=== PATIENT | female | born 1955 | race Caucasian/White ===

== ENCOUNTER 2017-01-26 07:17 | Inpatient (IN) ==
[2017-01-26] MEDS ORDERED: ALBUTEROL NEB INH ONE (07:29)
[2017-01-26] MEDS ORDERED: CATAPRES PO ONE ×2 (07:36→08:00)
[2017-01-26 07:45] LABS: MANUAL DIFF NEEDED? NO
--- NOTE | 2017-01-26 07:45 | EKG Report ---
Test Performed on : 01/26/2017 07:34:45 AM Test Reason : CHEST PAIN Blood Pressure : / mmHG Vent. Rate : 095 BPM Atrial Rate : 095 BPM P-R Int : 134 ms QRS Dur : 078 ms QT Int : 370 ms P-R-T Axes : 063 070 058 degrees QTc Int : 464 ms Normal sinus rhythm. Normal ECG No previous ECGs available Unconfirmed Result
[2017-01-26 07:48] LABS: BASO% 0.2 % (0.0-0.8); EOS# 0.08 X1000 (0.0-0.7); EOS% 0.7 % (0.0-10.0); HEMOGLOBIN 14.6 g/dL (12.0-16.0); IMM GRAN# 0.03 X1000 (0.0-0.04); IMM GRAN% 0.2 % (0.0-0.5); LYMPH# 1.04 X1000 (1.2-3.4); LYMPH% 8.5 % (20.5-51.1); MCH 28.6 PG (27-31); MCHC 34.8 g/dL (33-37); MCV 82.2 FL (81-99); MONO# 0.82 X1000 (0.11-0.59); MONO% 6.7 % (1.7-9.3); MPV 10.2 FL (7.4-10.4); NEUT% 83.7 % (42.2-75.2); PLT 265 X1000 (130-400); RBC 5.11 XMIL (4.2-5.4)
--- NOTE | 2017-01-26 07:55 | PROVIDER DOCUMENTATION ---
HPI-Respiratory General - General Chief Complaint: Shortness of Breath Stated Complaint: SOB Time Seen by Provider: 01/26/17 07:47 Source: patient Allergies/Adverse Reactions: Patient Allergies Allergy/AdvReac Type Severity Reaction Status Date / Time No Known Allergies Allergy Verified 01/26/17 07:25 Home Medications: Home Medication List Medication Instructions Recorded Confirmed Last Taken Type Albuterol Sulfate [Ventolin Hfa] 01/26/17 Unknown History Azithromycin [Azithromycin] 01/26/17 Unknown History Brompheniramine/Pseudoephed/Dm 01/26/17 Unknown History [Wbzqjlkpdl-Wtnrrcbdrgo-Ol Syr] Furosemide [Furosemide] 01/26/17 Unknown History Levofloxacin [Levofloxacin] 01/26/17 Unknown History Lisinopril/Hydrochlorothiazide 01/26/17 Unknown History [Lisinopril-Hctz 10-12.5 mg Tab] - History of Present Illness-Resp Nature of Presenting Problem: sick 5 days ago worked sunday raw throat not coughing no runny nose no wheezes feels sob Quality of Pain: reports: none Severity in ED: reports: mild Onset/Duration: reports: 5 days ago Timing: reports: getting worse Context: reports: recent URI Cough Quality/Degree: reports: productive cough Episode Frequency: no prior episodes Current Respiratory Medication Therapy: Initiated none Modifying Factors: improves with: albuterol inhaler. worse with: exertion, coughing Associated Symptoms: reports: cough, hyperventilating, shortness of breath, wheezing. denies: fever/chills, flu-like symptoms, headache, nasal congestion, nasal drainage Similar Symptoms Previously?: No Recently seen or treated by another doctor?: No Review of Systems - Adult - REVIEW OF SYSTEMS - ADULT Constitutional: denies: chills, fever, night sweats Eyes: reports: no symptoms reported Ears, Nose, Mouth & Throat: reports: sinus problem, hoarseness Cardiovascular: reports: edema. denies: chest pain, PND Respiratory: reports: cough, dyspnea on exertion, excessive sputum production, shortness of breath. denies: hemoptysis Gastrointestinal: reports: no symptoms reported Genitourinary: reports: no symptoms reported Musculoskeletal: reports: no symptoms reported Integumentary: reports: no symptoms reported Neurological: reports: no symptoms reported. denies: headache/migraines Endocrine: reports: no symptoms reported Hematologic/Lymphatic: denies: blood clots, easy bruising, low blood count Allergic/Immunologic: denies: asthma, eczema, hay fever Past History - Adult - PAST MEDICAL HISTORY-ADULT Review of Records: reports: Nursing Assessment Review, Medications Reviewed, Social history reviewed & non-contributory. Major Childhood Illnesses: reports: denies history Cardiovascular: reports: HTN Respiratory: reports: COPD. denies: sleep apnea Gastrointestinal: reports: denies history Genitourinary: reports: denies history Musculoskeletal: reports: denies history Neurological: reports: denies history Psychiatric: reports: denies history - PRIOR SURGERIES/PROCEDURES Surgical/Procedure History: reports: none - FAMILY HISTORY Family History: reviewed, not pertinent - SOCIAL HISTORY Smoking: cigarettes Physical Exam-General - PHYSICAL EXAM-ADULT Initial Vital Signs Reviewed: Yes - CONSTITUTIONAL General Appearance: alert, no apparent distress - EYES Eyes: PERRL/EOMI, pink conjunctivae - HEAD, EARS, NOSE, MOUTH & THROAT HENMT: normocephalic/atraumatic, moist mucous membranes, normal ENT inspection - NECK Neck: non-tender, full range of motion, normal inspection - RESPIRATORY Respiratory: no respiratory distress, no accessory muscle use, wheezing - CARDIOVASCULAR Cardiovascular: no gallop, no murmur, tachycardia - GASTROINTESTINAL (ABDOMEN) Abdominal Exam: normal bowel sounds, non tender, soft, no organomegaly, no pulsatile mass - MUSCULOSKELETAL Back Exam: no CVA tenderness, no vertebral tenderness Extremity: normal range of motion, normal inspection, no pedal edema, normal capillary refill - SKIN Integumentary: normal color, warm/dry - NEUROLOGIC Neurologic: relay telegrapher II-XII nml as tested, no motor/sensory deficits - PSYCHIATRIC Psych/Mental Status: normal mood/affect, normal thought content, normal thought process, oriented x 3 Progress - PLAN OF CARE/RESULTS Progress/Plan/Lab Results: Vital Signs - 8 hr 01/26/17 07:21 01/26/17 07:35 01/26/17 08:00 Temperature 98.7 F Pulse Rate 101 H 88 95 H Respiratory Rate 26 H 16 20 Blood Pressure 198/111 171/83 O2 Sat by Pulse Oximetry 94 L 92 L 01/26/17 08:40 01/26/17 09:19 01/26/17 09:30 Temperature Pulse Rate 89 93 H 93 H Respiratory Rate 20 20 20 Blood Pressure 151/92 164/96 O2 Sat by Pulse Oximetry 92 L 95 Laboratory Results - last 24 hr 01/26/17 01/26/17 01/26/17 07:44 07:44 07:44 WBC RBC Hgb Hct MCV MCH MCHC RDW Std Deviation Plt Count MPV Immature Gran % (Auto) Neut % (Auto) Lymph % (Auto) [place] % (Auto) Eos % (Auto) Baso % (Auto) Immature Gran # (Auto) Neut # (Auto) Lymph # (Auto) [place] # (Auto) Eos # (Auto) Baso # (Auto) PT INR APTT (Factor Assay) D-Dimer Specimen Type Sample Site pH pCO2 pO2 HCO3 Base Excess Oxyhemoglobin ABG O2 Sat (Calculated) ABG O2 Saturation ABG Carboxyhemoglobin ABG Methemoglobin Oscar Test A-a O2 Difference Total Hemoglobin Lactate Blood Gas Modality FiO2 % Sodium 122 L Potassium 3.5 Chloride 83 L Carbon Dioxide 24 L Anion Gap 16 BUN 15 Creatinine 0.6 Estimated GFR/1.73 m2 > 60 BUN/Creatinine Ratio 25 Glucose 105 H Calculated Osmolality 247 Calcium 9.0 Magnesium 1.7 Total Bilirubin 0.50 AST 14 ALT 13 Alkaline Phosphatase 96 Creatine Kinase 117 Troponin T < 0.010 Lcr-S-Gdhrsjfaoyd Pept 122 Total Protein 6.8 Albumin 4.0 Globulin 3.0 Albumin/Globulin Ratio 1.0 01/26/17 01/26/17 01/26/17 07:44 07:44 09:03 WBC 12.27 H RBC 5.11 Hgb 14.6 Hct 42.0 MCV 82.2 MCH 28.6 MCHC 34.8 RDW Std Deviation 13.7 Plt Count 265 MPV 10.2 Immature Gran % (Auto) 0.2 Neut % (Auto) 83.7 H Lymph % (Auto) 8.5 L [place] % (Auto) 6.7 Eos % (Auto) 0.7 Baso % (Auto) 0.2 Immature Gran # (Auto) 0.03 Neut # (Auto) 10.28 H Lymph # (Auto) 1.04 L [place] # (Auto) 0.82 H Eos # (Auto) 0.08 Baso # (Auto) 0.02 PT 12.6 INR 0.88 APTT (Factor Assay) 33.7 D-Dimer 0.28 Specimen Type ARTERIAL Sample Site L RADIAL pH 7.45 pCO2 40 pO2 51 L HCO3 27.3 H Base Excess 3.5 H Oxyhemoglobin 86.5 L* ABG O2 Sat (Calculated) 18.3 ABG O2 Saturation 90.8 L ABG Carboxyhemoglobin 3.30 H ABG Methemoglobin 1.4 Oscar Test YES A-a O2 Difference 49.0 Total Hemoglobin 15.1 Lactate 0.80 Blood Gas Modality ROOM AIR FiO2 % 21.0 Sodium Potassium Chloride Carbon Dioxide Anion Gap BUN Creatinine Estimated GFR/1.73 m2 BUN/Creatinine Ratio Glucose Calculated Osmolality Calcium Magnesium Total Bilirubin AST ALT Alkaline Phosphatase Creatine Kinase Troponin T Qcf-W-Cocfkqzusgd Pept Total Protein Albumin Globulin Albumin/Globulin Ratio 01/26/17 01/26/17 09:32 09:32 WBC RBC Hgb Hct MCV MCH MCHC RDW Std Deviation Plt Count MPV Immature Gran % (Auto) Neut % (Auto) Lymph % (Auto) [place] % (Auto) Eos % (Auto) Baso % (Auto) Immature Gran # (Auto) Neut # (Auto) Lymph # (Auto) [place] # (Auto) Eos # (Auto) Baso # (Auto) PT INR APTT (Factor Assay) D-Dimer Specimen Type Sample Site pH pCO2 pO2 HCO3 Base Excess Oxyhemoglobin ABG O2 Sat (Calculated) ABG O2 Saturation ABG Carboxyhemoglobin ABG Methemoglobin Oscar Test A-a O2 Difference Total Hemoglobin Lactate Blood Gas Modality FiO2 % Sodium Potassium Chloride Carbon Dioxide Anion Gap BUN Creatinine Estimated GFR/1.73 m2 BUN/Creatinine Ratio Glucose Calculated Osmolality Calcium Magnesium Total Bilirubin AST ALT Alkaline Phosphatase Creatine Kinase 122 Troponin T < 0.010 Bax-M-Eabzwhnrfdt Pept Total Protein Albumin Globulin Albumin/Globulin Ratio Orders Category Date Time Status Cardiac Monitoring DIRECTED Care 01/26/17 07:28 Active Oxygen Therapy- ED Nursing DIRECTED Care 01/26/17 07:28 Active Saline Loc NOW Care 01/26/17 07:28 Active CHEST-2 VIEWS [RAD] Stat Exams 01/26/17 07:28 Completed SINUSES SAMUELS VIEW ONLY [RAD] Stat Exams 01/26/17 07:57 Completed ABG [RESP] Routine Lab 01/26/17 09:03 Completed CBC WITH ELECTRONIC DIFF [HEME] Stat Lab 01/26/17 07:44 Completed CK PROFILE [SP CHEM] Stat Lab 01/26/17 07:44 Completed CK PROFILE [SP CHEM] Stat Lab 01/26/17 09:32 Completed COMPREHENSIVE METABOLIC PANEL [CHEM] Stat Lab 01/26/17 07:[address] D-DIMER PL [COAG] Stat Lab 01/26/17 07:44 Completed MAGNESIUM [CHEM] Stat Lab 01/26/17 07:44 Completed PRO B-NATRIURETIC PEPTIDE Stat Lab 01/26/17 07:44 Completed [address]IME WITH INR PL [COAG] Stat Lab 01/26/17 07:[address] [COAG] Stat Lab 01/26/17 07:44 Completed TROPONIN T Stat Lab 01/26/17 07:44 Completed TROPONIN T Stat Lab 01/26/17 09:32 Completed Albuterol 2.5MG/Ipratrop 0.5MG [Duoneb (A & A)] Med 01/26/17 09:03 Discontinued 3 ml INH NOW ONE Albuterol [Albuterol Neb] Med 01/26/17 07:29 Discontinued 2.5 mg INH NOW ONE Clonidine [Catapres] Med 01/26/17 07:57 Discontinued 0.1 mg .ROUTE .STK-MED ONE Clonidine [Catapres] Med 01/26/17 08:00 Discontinued 0.1 mg PO NOW ONE Clonidine [Catapres] Med 01/26/17 07:36 Discontinued 0.2 mg PO NOW ONE Aerosol Treatments Routine Oth 01/26/17 07:29 Active Aerosol Treatments Routine Oth 01/26/17 09:04 Active Aerosol Treatments Stat Oth 01/26/17 07:29 Active Aerosol Treatments Stat Oth 01/26/17 09:04 Active EKG [EKG] Stat Ther 01/26/17 07:28 Draft EKG [EKG] Stat Ther 01/26/17 09:15 Ordered Laboratory Tests 01/26/17 01/26/17 01/26/17 07:44 07:44 07:44 WBC RBC Hgb Hct MCV MCH MCHC RDW Std Deviation Plt Count MPV Immature Gran % (Auto) Neut % (Auto) Lymph % (Auto) [place] % (Auto) Eos % (Auto) Baso % (Auto) Immature Gran # (Auto) Neut # (Auto) Lymph # (Auto) [place] # (Auto) Eos # (Auto) Baso # (Auto) PT INR APTT (Factor Assay) D-Dimer Specimen Type Sample Site pH pCO2 pO2 HCO3 Base Excess Oxyhemoglobin ABG O2 Sat (Calculated) ABG O2 Saturation ABG Carboxyhemoglobin ABG Methemoglobin Oscar Test A-a O2 Difference Total Hemoglobin Lactate Blood Gas Modality FiO2 % Sodium 122 L Potassium 3.5 Chloride 83 L Carbon Dioxide 24 L Anion Gap 16 BUN 15 Creatinine 0.6 Estimated GFR/1.73 m2 > 60 BUN/Creatinine Ratio 25 Glucose 105 H Calculated Osmolality 247 Calcium 9.0 Magnesium 1.7 Total Bilirubin 0.50 AST 14 ALT 13 Alkaline Phosphatase 96 Creatine Kinase 117 Troponin T < 0.010 Vem-F-Rqdnqotpekv Pept 122 Total Protein 6.8 Albumin 4.0 Globulin 3.0 Albumin/Globulin Ratio 1.0 01/26/17 01/26/17 01/26/17 07:44 07:44 09:03 WBC 12.27 H RBC 5.11 Hgb 14.6 Hct 42.0 MCV 82.2 MCH 28.6 MCHC 34.8 RDW Std Deviation 13.7 Plt Count 265 MPV 10.2 Immature Gran % (Auto) 0.2 Neut % (Auto) 83.7 H Lymph % (Auto) 8.5 L [place] % (Auto) 6.7 Eos % (Auto) 0.7 Baso % (Auto) 0.2 Immature Gran # (Auto) 0.03 Neut # (Auto) 10.28 H Lymph # (Auto) 1.04 L [place] # (Auto) 0.82 H Eos # (Auto) 0.08 Baso # (Auto) 0.02 PT 12.6 INR 0.88 APTT (Factor Assay) 33.7 D-Dimer 0.28 Specimen Type ARTERIAL Sample Site L RADIAL pH 7.45 pCO2 40 pO2 51 L HCO3 27.3 H Base Excess 3.5 H Oxyhemoglobin 86.5 L* ABG O2 Sat (Calculated) 18.3 ABG O2 Saturation 90.8 L ABG Carboxyhemoglobin 3.30 H ABG Methemoglobin 1.4 Oscar Test YES A-a O2 Difference 49.0 Total Hemoglobin 15.1 Lactate 0.80 Blood Gas Modality ROOM AIR FiO2 % 21.0 Sodium Potassium Chloride Carbon Dioxide Anion Gap BUN Creatinine Estimated GFR/1.73 m2 BUN/Creatinine Ratio Glucose Calculated Osmolality Calcium Magnesium Total Bilirubin AST ALT Alkaline Phosphatase Creatine Kinase Troponin T Dvx-W-Xcdpryrhanu Pept Total Protein Albumin Globulin Albumin/Globulin Ratio 01/26/17 01/26/17 09:32 09:32 WBC RBC Hgb Hct MCV MCH MCHC RDW Std Deviation Plt Count MPV Immature Gran % (Auto) Neut % (Auto) Lymph % (Auto) [place] % (Auto) Eos % (Auto) Baso % (Auto) Immature Gran # (Auto) Neut # (Auto) Lymph # (Auto) [place] # (Auto) Eos # (Auto) Baso # (Auto) PT INR APTT (Factor Assay) D-Dimer Specimen Type Sample Site pH pCO2 pO2 HCO3 Base Excess Oxyhemoglobin ABG O2 Sat (Calculated) ABG O2 Saturation ABG Carboxyhemoglobin ABG Methemoglobin Oscar Test A-a O2 Difference Total Hemoglobin Lactate Blood Gas Modality FiO2 % Sodium Potassium Chloride Carbon Dioxide Anion Gap BUN Creatinine Estimated GFR/1.73 m2 BUN/Creatinine Ratio Glucose Calculated Osmolality Calcium Magnesium Total Bilirubin AST ALT Alkaline Phosphatase Creatine Kinase 122 Troponin T < 0.010 Kry-I-Ffubtegehcf Pept Total Protein Albumin Globulin Albumin/Globulin Ratio Result Diagrams: 01/26/17 07:44 01/26/17 07:44 - EKG 1 Time of EKG reading by physician:: 07:34 EKG Read and Signed by:: Romario Cortés EKG Interpretation (*Must complete 3 of following elements*): Normal Rate: 95 Rhythm: NSR [place]: normal QRS: normal [place] Interval: normal ST Wave: normal - XRAY 1 XRAY Study: Chest Impression: Abnormal XRAY Interpretation: COPD 2 XRAY Study: other (samuels view) Impression: Normal XRAY Interpretation: negative - CONSULTS/PCP/HOSPITALIST Notification #1 *Consult/PCP/Hospitalist*: Dr. HARRIS Thomas Time Discussed: 10:10 Reason/Comments: pt wants to go home, will go to his office now Consult Disposition: F/U in office Departure - Departure Date of Disposition Decision: 01/26/17 Time of Disposition Decision: 10:08 (.) DIAGNOSIS: COPD exacerbation Disposition: HOME 01 Certified Medical Emergency: Emergent Condition: Stable Additional Freetext Instructions: ED Follow Up Instructions: You have been treated by a care provider in the Emergency Department. These instructions are being provided to you so you can have an understanding of how to care for yourself upon discharge. Upon discharge from the Emergency Department, you are responsible for making arrangements for follow-up care by a physician of your choice. Take all prescribed medications as directed. Return to the Emergency Department immediately for any new or worsening symptoms. You may call the Physician Referral phone number at [phone] to obtain a list of Physicians who are taking new patients. Referrals and Follow-Ups: Patricia Thomas MD [Primary Care Provider] - (go to his office NOW) Discharge Education: Chronic Obstructive Pulmonary Disease Exacerbation, Easy- to-Read - Critical Care Note This patient required my direct & personal management of CC.: No Attestation - Physician/ GARRY Attestation Patient care was provided by Advanced Practice Provider:: No The physician spent face to face time with patient:: Yes Advanced Practice Provider documentation review:: Supervising physician onsite and consulted in the evaluation and care of this patient. The physician did have a face to face encounter with the patient.
[2017-01-26] MEDS ORDERED: CATAPRES ONE (07:57)
[2017-01-26 08:11] LABS: INR 0.88 (0.86-1.15); PROTIME 12.6 Seconds (12.1-15.5)
[2017-01-26 08:12] LABS: PTT PL 33.7 Seconds (22.6-43.9)
--- NOTE | 2017-01-26 08:17 | Diag Imaging Result Doc PS360 ---
CHEST-2 VIEWS - 01/26/2017 INDICATION: SOB TECHNIQUE: COMPARISON: 07/26/2015 FINDINGS: Stable hyperexpanded lungs compatible with COPD. No focal infiltrates, pneumothorax, or pleural effusion. Heart size and pulmonary vascularity is normal. IMPRESSION: COPD. Electronically signed by Carter Murphy 01/26/2017 8:14 AM
--- NOTE | 2017-01-26 08:17 | Diag Imaging Result Doc PS360 ---
SINUSES SAMUELS VIEW ONLY - 01/26/2017 INDICATION: cough TECHNIQUE: COMPARISON: None FINDINGS: The sinuses are normally developed and clear. Mastoids appear clear as well. IMPRESSION: Negative exam. Electronically signed by Carter Murphy 01/26/2017 8:15 AM
[2017-01-26 08:34] LABS: AGAP 16; ALKALINE PHOSPHATASE 96 U/L (32-104); BUN 15 mg/dL (8-22); CHLORIDE 83 mmol/L (98-107); CK PROFILE 117 U/L (24-173); COSMO 247; GOT 14 U/L (10-30); GPT 13 U/L (10-36); MAGNESIUM 1.7 mg/dL (1.5-2.7); POTASSIUM 3.5 mmol/L (3.5-5.1); SODIUM 122 mmol/L (136-145); TCO2 24 mmol/L (25-35); TOTAL PROTEIN 6.8 g/dL (6.3-8.3)
[2017-01-26] MEDS ORDERED: DUONEB (A & A) INH ONE (09:03)
[2017-01-26 09:29] LABS: BE 3.5 mmoll (-3.0-3.0); BLOOD TYPE ARTERIAL; DRAW SITE L RADIAL; METHB 1.4 % (0.0-1.5); O2(CT) 18.3 mL/dL (15.0-23.0); PCO2(98.6) 40 mmHg (35-45); PO2(98.6) 51 mmHg (60-100); SAMPLE BLOOD; SAO2 90.8 % (95.0-100.0); THB 15.1 g/dL (11.5-17.4); pH(98.6) 7.45 (7.35-7.45)
[2017-01-26 09:33] LABS: ALLEN TEST YES; MODALITY ROOM AIR
--- NOTE | 2017-01-26 09:38 | ED EKG INTERP ---
EKG Interpretation - EKG # 2 Time of EKG reading by physician:: 09:23 EKG Read and Signed by:: Romario Cortés EKG Interpretation (*Must complete 3 of following elements*): Normal Rate: 95 Rhythm: Sinus Rhythm False Pass: normal QRS: normal [place] Interval: normal ST Wave: normal Attestation - Physician/ GARRY Attestation The physician spent face to face time with patient:: Yes Advanced Practice Provider documentation review:: Supervising physician onsite and consulted in the evaluation and care of this patient. The physician did have a face to face encounter with the patient.
[2017-01-26] MEDS ORDERED: LEVAQUIN 750 MG/D5W 750 MG/150 ML IVPB IV ONE (10:38)
--- NOTE | 2017-01-26 10:56 | EKG Report ---
Test Performed on : 01/26/2017 09:23:33 AM Test Reason : repeat Blood Pressure : / mmHG Vent. Rate : 095 BPM Atrial Rate : 095 BPM P-R Int : 132 ms QRS Dur : 072 ms QT Int : 370 ms P-R-T Axes : 063 070 076 degrees QTc Int : 464 ms Sinus rhythm. with premature atrial complexes. Otherwise normal ECG When compared with ECG of 26-JAN-2017 07:34, (Unconfirmed) premature atrial complexes. are now present Unconfirmed Result
[2017-01-26] MEDS ORDERED: PNEUMOVAX 23 IM ONE (12:09)
[2017-01-26] MEDS ORDERED: DUONEB (A & A) INH PRN (13:09)
[2017-01-26] MEDS ORDERED: LASIX PO PRN (14:00)
[2017-01-26] MEDS: SOLU-MEDROL IV SCH ×2 (14:24→20:31)
[2017-01-26] MEDS: NS 1,000 ML IV SCH (14:24)
--- NOTE | 2017-01-26 14:45 | HISTORY AND PHYSICAL ---
PRIMARY CARE PHYSICIAN: Dr. Thomas CHIEF COMPLAINT: Shortness of breath for the past 5 days that has progressively worsened. HISTORY OF PRESENT ILLNESS: This is a 61-year-old female who presented to [facility] ER with complaints of shortness of breath that has progressively worsened over the past 5 days. Complains of a raw throat, nonproductive cough. She is noted to be a 6-dfrt-x-day smoker for the past 40 years. Her workup showed on arrival an O2 saturation of 94%, her blood pressure was elevated at 198/111 with respirations of 26. Laboratory data showed a mildly elevated white blood cell count of 12.27. Sodium was 122, chloride 83. Cardiac enzymes x2 sets were negative. Chest x-ray showed COPD. A Water's view x-ray showed a negative exam of sinuses, so she will be admitted to the Medical Unit for further evaluation and treatment. It is noted that the patient was going to be discharged from the ER to her primary care physician's office for a possible admission to [facility], but [facility], she felt like she was increasingly short of breath and could not make that drive, so she came back in and asked to be admitted here at [place] to the Hospitalist Service. PAST MEDICAL HISTORY: Hypertension and COPD. PAST SURGICAL HISTORY: Bilateral tubal ligation. FAMILY HISTORY: Noncontributory. SOCIAL HISTORY: She currently lives alone. She is a 8-yuja-i-day smoker and has done so for the past 40 years. Denies any alcohol or illicit drug use. ALLERGIES: She has no known drug allergies. HOME MEDICATIONS: She takes Ventolin q.4 to 6 hours p.r.n., aspirin 81 mg p.o. daily, vitamin D3 8000 units p.o. daily, vitamin B12 2500 mcg lozenge p.o. daily, Lasix 20 mg daily p.r.n., latanoprost 1 drop to both eyes nightly at bedtime, levocetirizine 5 mg p.o. daily, Levaquin 500 mg p.o. daily will be held, lisinopril/hydrochlorothiazide 1 p.o. daily will be held, and we will give just the lisinopril 10 mg p.o. daily. DIAGNOSTIC DATA: White blood cell count is 12.27, hemoglobin 14.6, hematocrit 42, platelets 265. PT and INR of 12.6 and 0.88 with a D-dimer of 0.28. ABG showed a pH of 7.45, pCO2 of 40, pO2 of 51, bicarb of 27.3, oxyhemoglobin of 86.5. Sodium is 122, potassium 3.5, chloride 83, Co2 is 24, BUN is 15, creatinine 0.6, glucose 105, magnesium 1.7. Cardiac enzymes x3 sets were negative. Chest x-ray showed COPD. Water's view x-ray was normal. EKG on arrival showed normal sinus rhythm at 95. REVIEW OF SYSTEMS: She denied any fever, chills, blurred vision, dizziness or chest pain. She has had a nonproductive cough, shortness of breath. Denied any abdominal pain, constipation, diarrhea or burning or hurting with urination. PHYSICAL EXAMINATION: VITAL SIGNS: On arrival, she had a temperature of 98.7, pulse 101, respirations 26, blood pressure 198/111, saturating 94% on room air, currently saturating 98% on 3 L with a blood pressure of 174/77. GENERAL: This is a 61-year-old female who is sitting up in the bed and answers questions appropriately. HEENT: Normocephalic and atraumatic. Pupils are equal, round and reactive to light. Extraocular movements were intact. Oropharynx and nares are clear. NECK: Supple. LUNGS: Mild wheezes to the upper lobes, decreased to the lower lobes. Nonproductive cough noted with congestion and equal lung expansion and chest wall movement. O2 via nasal cannula currently in use. HEART: Regular rate and rhythm. No murmurs, rubs or gallops. ABDOMEN: Soft, nontender and nondistended. Bowel sounds are present x4 quadrants. EXTREMITIES: No cyanosis, clubbing or edema. NEUROLOGICAL: The cranial nerves II through XII appear grossly intact. ASSESSMENT: 1. Chronic obstructive pulmonary disease exacerbation, acute. 2. Hyponatremia. 3. Hypertension. 4. Tobacco abuse. PLAN: She is being admitted to the Medical Unit at [place], placed on telemetry, O2 per protocol. Incentive spirometry. Healthy heart diet. Placed on DuoNebs q.4 hours routinely and q.2 p.r.n., Solu Medrol 60 mg IV q.8, Rocephin 1 g IV q.24, first dose to begin in the a.m. as she received Levaquin today in the ER. We will recheck a CBC and BMP in the a.m. We will place on some gentle hydration at 75 mL an hour. We will give a nicotine patch 21 mg transdermally daily. Dictated by XUAN Blackwell for Guillermo Lira MD cc: XUAN Blackwell MD Dr. Reddy
[2017-01-26] MEDS ORDERED: KLONOPIN PO PRN (15:31)
[2017-01-26] MEDS: DUONEB (A & A) INH SCH ×3 (15:49→22:48)
[2017-01-26] MEDS: NICODERM PATCH TD SCH (15:55)
[2017-01-26] MEDS ORDERED: REQUIP PO ONE (17:03)
[2017-01-26] MEDS: REQUIP PO SCH (20:31)
[2017-01-26] MEDS: XALATAN 0.005% OPH SOLN BOTH EYES SCH (20:31)
--- NOTE | 2017-01-26 21:29 | HISTORY AND PHYSICAL ---
ADDENDUM: Patient seen, examined bexi-fa-ywpt encounter. This is a 61-year-old female with no known COPD but about a 40-50 pack year history of smoking. She presents with wheezing, shortness of breath, hypoxia, cough was felt to clinically have a COPD exacerbation. She was admitted for treatment. She has been placed on nebs, steroids, antibiotics. She may need home oxygen evaluation, additionally she is hyponatremic which I think is most likely related to diuretic effect hydrochlorothiazide and Lasix. We will check urine Osmolite and start normal saline and follow her sodium levels closely. cc: Guillermo Lira MD
[2017-01-26 21:34] LABS: AGAP 16; BUN 14 mg/dL (8-22); CALCIUM 8.9 mg/dL (8.8-10.2); CHLORIDE 82 mmol/L (98-107); COSMO 253; POTASSIUM 4.3 mmol/L (3.5-5.1); SODIUM 124 mmol/L (136-145); TCO2 26 mmol/L (25-35)
[2017-01-26] MEDS: VENTOLIN HFA INH PRN (22:50)
[2017-01-27] MEDS: DUONEB (A & A) INH SCH ×6 (03:33→23:40)
[2017-01-27] MEDS: NS 1,000 ML IV SCH (03:51)
[2017-01-27] MEDS: SOLU-MEDROL IV SCH ×3 (04:45→20:17)
[2017-01-27] MEDS: VENTOLIN HFA INH PRN (05:09)
[2017-01-27 06:27] LABS: HEMATOCRIT 40.5 % (37.0-47.0); HEMOGLOBIN 13.6 g/dL (12.0-16.0); IMM GRAN# 0.02 X1000 (0.0-0.04); IMM GRAN% 0.2 % (0.0-0.5); LYMPH# 0.67 X1000 (1.2-3.4); LYMPH% 6.2 % (20.5-51.1); MANUAL DIFF NEEDED? YES; MCH 27.6 PG (27-31); MCHC 33.6 g/dL (33-37); MCV 82.2 FL (81-99); MONO# 0.16 X1000 (0.11-0.59); MONO% 1.5 % (1.7-9.3); MPV 10.1 FL (7.4-10.4); NEUT% 92.1 % (42.2-75.2); PLT 251 X1000 (130-400); RBC 4.93 XMIL (4.2-5.4)
[2017-01-27 06:34] LABS: LYMPHS 10 % (21-51)
[2017-01-27 06:36] LABS: LARGE PLATELETS OCCASIONAL; STOMATOCYTES OCCASIONAL
[2017-01-27 06:53] LABS: AGAP 10; BUN 13 mg/dL (8-22); CALCIUM 8.5 mg/dL (8.8-10.2); CHLORIDE 85 mmol/L (98-107); COSMO 246; POTASSIUM 4.1 mmol/L (3.5-5.1); SODIUM 121 mmol/L (136-145); TCO2 26 mmol/L (25-35)
[2017-01-27] MEDS: ASPIRIN EC PO SCH (08:32)
[2017-01-27] MEDS: VITAMIN B-12 PO SCH (08:32)
[2017-01-27] MEDS: NICODERM PATCH TD SCH (08:32)
[2017-01-27] MEDS: VITAMIN D PO SCH ×2 (08:32)
[2017-01-27] MEDS: ZYRTEC PO SCH (08:33)
[2017-01-27] MEDS: PRINIVIL PO SCH (08:33)
[2017-01-27] MEDS: ROCEPHIN 1 GM in NS 50 ML IV SCH (11:26)
--- NOTE | 2017-01-27 13:31 | PROGRESS NOTE ---
DATE: 01/27/2017 SUBJECTIVE: The patient sitting on the side of the bed. States she is feeling better today. OBJECTIVE: Vital signs: Showed a temperature of 97.6 degrees, pulse 99, respirations 18, blood pressure 177/71, satting 94% on 3 L via nasal cannula. General: This is a 61-year-old female, who is sitting on the side of the bed. Answers questions appropriately. HEENT: Normocephalic and atraumatic. Pupils are equal, round, reactive to light. Extraocular movements are intact. Oropharynx and nares are clear. Neck: Supple. Lungs: With scattered expiratory wheezes throughout entire posterior lung evans. Equal lung expansion and chest wall movement noted. O2 via nasal cannula in use. Heart: Regular rate and rhythm. No murmurs, rubs, or gallops. Abdomen: Soft, nontender, nondistended. Bowel sounds are present x4 quadrants. Extremities: No clubbing, cyanosis, or edema. Neurological: Cranial nerves 2-12 are grossly intact. LABORATORY DATA: Showed a white blood cell count of 10.76, hemoglobin 13.6, hematocrit 40.5, platelets 251. Sodium of 121, potassium 4.1, chloride 85, CO2 26, BUN of 13, creatinine 0.5 and glucose of 130. ASSESSMENT/PLAN: 1. An acute chronic obstructive pulmonary disease exacerbation. We will continue her oxygen per protocol, steroids, DuoNebs and antibiotics. 2. Hyponatremia. She has been on normal saline at 75 mL an hour and did not have any improvement, so we will place her on a fluid restriction of 1200 mL per 24 hours. Recheck a basic metabolic panel in the morning. I will discontinue the normal saline and we will recheck labs in the morning. 3. Hypertension. Stable on current medication regimen. 4. Tobacco abuse. Smoking cessation counseling continues. She continues to have her nicotine patch also. Dictated by XUAN Blackwell for Guillermo Lira MD cc: XUAN Blackwell MD
--- NOTE | 2017-01-27 17:10 | PROGRESS NOTE ---
DATE: 01/27/2017 SUBJECTIVE: Patient has no focal complaints. OBJECTIVE: Vital signs: Blood pressure 134/81, heart rate 86, respiratory 18, temperature 97.7 degrees, 99% on 3 L. Cardiovascular: Regular rate and rhythm. Pulmonary: Bilateral breath sounds. Clear to auscultation. GI: Soft, nontender, nondistended. Bowel sounds are positive. LABORATORY DATA: White count 10, hemoglobin and hematocrit 13 and 40, platelets 251,000, sodium is only at 121. ASSESSMENT AND PLAN: 1. Briefly this is a chronic obstructive pulmonary disease exacerbation. Will continue her current treatments, wean steroids. 2. Hyponatremia. We are going to do fluid restriction and follow closely. Agree with other face- to-face encounter. cc: Guillermo Lira MD
[2017-01-27] MEDS: REQUIP PO SCH (20:17)
[2017-01-27] MEDS: XALATAN 0.005% OPH SOLN BOTH EYES SCH (20:17)
[2017-01-28] MEDS: DUONEB (A & A) INH SCH ×6 (03:43→22:33)
[2017-01-28] MEDS: SOLU-MEDROL IV SCH ×3 (04:54→21:17)
[2017-01-28 06:15] LABS: HEMATOCRIT 40.8 % (37.0-47.0); HEMOGLOBIN 13.8 g/dL (12.0-16.0); IMM GRAN# 0.07 X1000 (0.0-0.04); IMM GRAN% 0.3 % (0.0-0.5); LYMPH# 1.08 X1000 (1.2-3.4); LYMPH% 4.8 % (20.5-51.1); MANUAL DIFF NEEDED? YES; MCH 28.5 PG (27-31); MCHC 33.8 g/dL (33-37); MCV 84.1 FL (81-99); MONO# 1.03 X1000 (0.11-0.59); MONO% 4.6 % (1.7-9.3); MPV 10.6 FL (7.4-10.4); NEUT% 90.3 % (42.2-75.2); PLT 307 X1000 (130-400); RBC 4.85 XMIL (4.2-5.4)
[2017-01-28 07:04] LABS: AGAP 11; BUN 15 mg/dL (8-22); CHLORIDE 89 mmol/L (98-107); COSMO 257; SODIUM 127 mmol/L (136-145); TCO2 28 mmol/L (25-35)
[2017-01-28 07:33] LABS: LYMPHS 6 % (21-51); MONO 2 % (1-9)
[2017-01-28] MEDS: ZYRTEC PO SCH (09:21)
[2017-01-28] MEDS: VITAMIN D PO SCH ×2 (09:21)
[2017-01-28] MEDS: PRINIVIL PO SCH (09:21)
[2017-01-28] MEDS: NICODERM PATCH TD SCH (09:21)
[2017-01-28] MEDS: ASPIRIN EC PO SCH (09:21)
[2017-01-28] MEDS: VITAMIN B-12 PO SCH (12:18)
[2017-01-28] MEDS: ROCEPHIN 1 GM in NS 50 ML IV SCH (13:18)
--- NOTE | 2017-01-28 17:14 | PROGRESS NOTE ---
DATE: 01/28/2017 SUBJECTIVE: The patient has no focal complaints. OBJECTIVE: Blood pressure 131/61, heart rate of 91, respiratory rate 18, temperature 98.9 degrees, 95 on 2 L. Cardiovascular: Regular rate and rhythm. Pulmonary: Bilateral breath sounds. Clear to auscultation. GI: Soft, nontender, nondistended. Bowel sounds are positive. Extremities: No clubbing or cyanosis. Lymphatics: No peripheral edema. Neurological: Exam was nonfocal. LABORATORY DATA: White count 22, hemoglobin and hematocrit 13 and 40, platelets of 307,000. Sodium was 127. PROBLEM LIST: 1. Chronic obstructive pulmonary disease exacerbation. She seems to be doing better. I am going to wean her steroids and try to wean her off her O2. 2. Hyponatremia. Her urine electrolytes are really consistent with syndrome of inappropriate antidiuretic hormone secretion. I may progress with a CT of her chest just to make sure that there are no pulmonary issues and we will follow clinically, but her sodium is overall improved with fluid restriction. DISPOSITION: I think if she is stable off O2, I think we could probably discharge her tomorrow. We will continue to follow. cc: Guillermo Lira MD
[2017-01-28] MEDS: XALATAN 0.005% OPH SOLN BOTH EYES SCH (21:17)
[2017-01-28] MEDS: REQUIP PO SCH (21:17)
[2017-01-29] MEDS: DUONEB (A & A) INH SCH ×6 (03:39→23:37)
[2017-01-29 05:48] LABS: HEMATOCRIT 39.6 % (37.0-47.0); HEMOGLOBIN 13.1 g/dL (12.0-16.0); MCH 28.2 PG (27-31); MCHC 33.1 g/dL (33-37); MCV 85.2 FL (81-99); MPV 10.3 FL (7.4-10.4); RBC 4.65 XMIL (4.2-5.4)
[2017-01-29 06:16] LABS: AGAP 7; ALBUMIN 3.6 g/dL (3.5-5.0); ALKALINE PHOSPHATASE 64 U/L (32-104); BUN 17 mg/dL (8-22); CALCIUM 8.8 mg/dL (8.8-10.2); CHLORIDE 93 mmol/L (98-107); COSMO 260; GOT 17 U/L (10-30); GPT 21 U/L (10-36); POTASSIUM 5.2 mmol/L (3.5-5.1); SODIUM 128 mmol/L (136-145); TCO2 28 mmol/L (25-35); TOTAL PROTEIN 5.9 g/dL (6.3-8.3)
--- NOTE | 2017-01-29 08:07 | Diag Imaging Result Doc PS360 ---
EXAM: CT THORAX W/CONTRAST HISTORY: pneumonia TECHNIQUE: CT chest with contrast. Dose reduction protocol. COMPARISON: None. FINDINGS: No pleural effusions. No cardiomegaly. No thoracic aortic aneurysm or dissection. There are at least moderate calcification left anterior descending artery. There are several calcified left hilar lymph nodes. No enlarged lymph nodes. Minimal atelectasis in the lingular segment of the left upper lobe. No consolidation. No bronchiectasis. Limited images through the upper abdomen reveal fatty infiltration of the liver. IMPRESSION: No pneumonia. Electronically signed by Bon Humphrey 01/29/2017 8:04 AM
[2017-01-29] MEDS: PRINIVIL PO SCH (09:11)
[2017-01-29] MEDS: VITAMIN B-12 PO SCH (09:11)
[2017-01-29] MEDS: NICODERM PATCH TD SCH (09:11)
[2017-01-29] MEDS: ASPIRIN EC PO SCH (09:11)
[2017-01-29] MEDS: VITAMIN D PO SCH ×2 (09:11)
[2017-01-29] MEDS: ZYRTEC PO SCH (09:12)
[2017-01-29] MEDS: SOLU-MEDROL IV SCH ×2 (09:17→21:14)
[2017-01-29] MEDS: ROCEPHIN 1 GM in NS 50 ML IV SCH (12:26)
--- NOTE | 2017-01-29 18:22 | PROGRESS NOTE ---
DATE: 01/29/2017 SUBJECTIVE: The patient denies shortness of breath as long as she is wearing oxygen. She denies any chest pain, palpitations, or dizziness. OBJECTIVE: Vital Signs: Blood pressure is 141/58 with a heart rate of 88, respirations are 18, temperature is 98.1 degrees oral with O2 saturation of 92-97% on 2 L. Room air setting is 90. Walking was 85-86. Cardiovascular: Regular rate and rhythm S1, S2 appreciated. Pulmonary: Breath sounds are clear with no increased work of breathing noted. Gastrointestinal: Abdomen is soft, nontender, nondistended with bowel sounds in all 4 quadrants. Neurologic: Alert orient x 3 with cranial nerves 2-12 grossly intact. PROBLEM LIST: 1. Chronic obstructive pulmonary disease exacerbation. She does feel better as long as she is wearing oxygen. As stated above, room air saturations were 88-90 sitting. She did drop to 85% while walking just a short distance. She did recover back up to 92-93 once 2 L was placed. We will have social work look at obtaining home O2. 2. CT of the chest revealed no pneumonia, no pleural effusions, no cardiomegaly, no thoracic aortic aneurysm or dissection. There is moderate calcification left anterior descending artery, minimal atelectasis in the lingular segment of the left upper lobe. No consolidation, no bronchiectasis. Hopefully, will arrange her home O2 and she can be discharged in the morning. Dictated by XUAN Diaz for David Díaz MD cc: XUAN Diaz MD
[2017-01-29] MEDS ORDERED: MUCINEX PO PRN (19:24)
--- NOTE | 2017-01-29 20:38 | PROGRESS NOTE ---
DATE: 01/29/2017 SUBJECTIVE: The patient seen and examined by myself. Full note dictated by nurse practitioner. EXAM: Patient is awake, alert. She is currently in no distress. She is pleasant to talk with. She is about to head down to a CT. She is standing in the exam room with no issues ambulating from the bed to the wheelchair. On physical exam she is awake, alert. She is in no distress. Pleasant to talk with. Does have some faint wheezing bilaterally. Good air movement. PLAN: Will check a CT of the chest today, decrease her treatments and hopefully home in the a.m. Further orders as . cc: David Díaz MD
[2017-01-29] MEDS: REQUIP PO SCH (21:14)
[2017-01-29] MEDS: XALATAN 0.005% OPH SOLN BOTH EYES SCH (21:23)
[2017-01-30] MEDS: DUONEB (A & A) INH SCH ×4 (03:49→15:11)
[2017-01-30] MEDS: ASPIRIN EC PO SCH (09:16)
[2017-01-30] MEDS: SOLU-MEDROL IV SCH (09:16)
[2017-01-30] MEDS: NICODERM PATCH TD SCH (09:16)
[2017-01-30] MEDS: VITAMIN D PO SCH ×2 (09:16→09:17)
[2017-01-30] MEDS: PRINIVIL PO SCH (09:17)
[2017-01-30] MEDS: VITAMIN B-12 PO SCH (09:17)
[2017-01-30] MEDS: ZYRTEC PO SCH (09:18)
[2017-01-30] MEDS: ROCEPHIN 1 GM in NS 50 ML IV SCH (12:11)
[2017-01-30] MEDS ORDERED: FLUZONE QUAD 2017-2018 SYRINGE IM ONE (14:00)
[2017-01-30 15:25] VITALS: BP 168/80
--- NOTE | 2017-01-31 05:07 | DISCHARGE SUMMARY ---
ADMISSION DATE: 01/26/2017 DISCHARGE DATE: 01/30/2017 PROBLEM LIST: 1. Chronic obstructive pulmonary disease exacerbation, presumed. 2. Hyponatremia. 3. Hypertension. DISCHARGE DIAGNOSES: 1. Chronic obstructive pulmonary disease exacerbation, presumed. 2. Hyponatremia. 3. Hypertension. HOSPITAL COURSE: Briefly, this is a 61-year-old female with significant smoking history, I want to say probably [id number] history of smoking, who comes in with shortness of breath and cough. She has been seen previously by Dr. Thomas. She had a white count 12,000. She was also hyponatremic. Water's view x-ray was negative. Chest x-ray showed COPD, and she was admitted for treatment. I think she was initially seen at [facility] and somehow ended up over here at [facility]. But in any case, she was placed on breathing treatments, and she slowly clinically improved. Initial hyponatremia did not correct with normal saline. It actually got worse. Interestingly enough, urine sodium is 69. Urine osmolality is up to 990, which is concerning for possible SIADH. Clinically, she was doing okay. She was placed on some steroids. She was placed on antibiotics. White count had went up to 22, and then went down 19. Slowly she improved. We did go ahead and do a chest CT to rule out mass because she did have an SIADH kind of issue. I did recommend holding her HCTZ in the short term. She did have 88% to 90% sats, but she was not happy about being set up for home oxygen. But I felt that she would only need it with exertion and hopefully, we will set that up prior to discharge if she qualifies again today. DISCHARGE MEDICATIONS: Combivent q.6h, aspirin 81 daily, Vitamin D3 25 daily, Lasix 20 daily, latanoprost 2.5 daily, Zyrtec 5 daily, Levaquin 500 daily. I think she is on Rocephin. Also, we will do Omnicef, I guess, 300 daily for 7 days and just change her lisinopril 10 daily. I am going to refer her back to her PCP. Her sodium at discharge is around 128. But clinically, she has stabilized. TIME SPENT: 30-minute discharge. She was also set up with Dr. Alcantar for evaluation for PFTs and outpatient treatment. DISCHARGE CONDITION: Stable. cc: MD Dr. William Velez
== END 2017-01-30 17:45 | disposition home or self-care (01) ==
LOC: P.ED 07:17 → P.MEDSURG 07:17 → SUATTDRO 07:18 → OBSVTOIN 07:18
PROVIDERS: ATTEND Internal Medicine